=== PATIENT | male | born 1980 | race Two or more races ===

== ENCOUNTER 2019-06-26 17:16 | Emergency (ER) | payer MEDICAID ==
[~2019-06-26] VITALS: Ht 170.2 cm; Wt 74.8 kg
[2019-06-26] MEDS ORDERED: CLINDAMYCIN 600MG IV 50 ML IV ONE (19:30)
[2019-06-26 20:24] VITALS: BP 140/81
== END 2019-06-26 21:03 | disposition home or self-care (01) ==
LOC: EDSEX 17:16 → ER 17:16
DX: L03.012 Cellulitis of left finger (principal); R19.7 Diarrhea, unspecified; R51 Headache
CPT/HCPCS: 10060; 73200; 96365; 99284; J3490

== ENCOUNTER 2019-06-27 21:07 | Emergency (ER) | payer MEDICAID ==
[~2019-06-27] VITALS: Ht 170.2 cm; Wt 74.8 kg
[2019-06-28 02:15] VITALS: BP 129/83
== END 2019-06-28 02:32 | disposition home or self-care (01) ==
LOC: ER 21:11
DX: L03.012 Cellulitis of left finger (principal)
CPT/HCPCS: 26010